=== PATIENT | male | born 1980 | race Caucasian/White ===

== ENCOUNTER 2018-08-10 11:23 | Emergency (ER) | payer OTHER ==
--- NOTE | 2018-08-10 12:11 | EDPHY ---
H & P Time Seen by Provider: 08/10/18 11:50 HPI/ROS: CHIEF COMPLAINT: Fatigue, bruising HISTORY OF PRESENT ILLNESS: 38-year-old male presents to the emergency department with fatigue for several days and then he woke up this morning with some unexplained bruising on his lower extremities. He denies any known trauma or injury. He also states that yesterday morning when he woke up he noted some lesions to the anterior part of his nose. He denies any other headache or any other lesions. No fevers or chills. No reported trauma. No URI symptoms. No chest pain or difficulty breathing. He moved from [place] last summer and does not have a primary care provider. REVIEW OF SYSTEMS: Constitutional: Fatigue. No fever, no chills. Eyes: No double or blurry vision. ENT: No sore throat. Respiratory: No cough, no shortness of breath. Cardiac: No chest pain. Gastrointestinal: No abdominal pain, vomiting or diarrhea. Genitourinary: No dysuria. Musculoskeletal: No neck or back pain. Skin: Lesions to nose as above. Neurological: No headache. Past Medical/Surgical History: Negative Social History: Originally from [place] Smoking Status: Former smoker Physical Exam: General Appearance: Alert, no distress. Vital signs stable. No apparent distress. Eyes: Pupils equal and round. Extraocular motions are all intact. ENT: Mouth: Mucous membranes moist. Respiratory: No wheezing, rhonchi, or rales, lungs are clear to auscultation. Cardiovascular: Regular rate and rhythm. Gastrointestinal: Abdomen is soft and nontender, no masses, no rebound or guarding, bowel sounds normal. Neurological: Alert and oriented x 3, cranial nerves II through XII grossly intact Skin: Superficial excoriated lesions noted to the anterior aspect of his nose. No vesicles. No other rash noted. Warm and dry, no rashes. Musculoskeletal: Nontender to palpate along the cervical, thoracic or lumbar spine. Neck is supple. Extremities: Several small 1-2 cm in diameter areas of ecchymosis noted to the anterior aspect of both lower legs just superior to his patella as. No petechial rash. No redness. Nontender to palpate. Full range of motion of his upper lower extremities. No other lesions or rash noted elsewhere. Psychiatric: Patient is oriented X 3, there is no agitation. Constitutional: Initial Vital Signs Temperature (C) 36.8 C 08/10/18 11:26 Heart Rate 83 08/10/18 11:26 Respiratory Rate 16 08/10/18 11:26 Blood Pressure 138/99 H 08/10/18 11:26 O2 Sat (%) 97 08/10/18 11:26 O2 Delivery Mode Room Air Allergies/Adverse Reactions: No Known Allergies Allergy (Unverified 08/10/18 11:29) Home Medications: Medication Instructions Recorded Valacyclovir HCl [Valtrex] 1,000 mg PO TID #21 tab 08/10/18 Medical Decision Making ED Course/Re-evaluation: 38-year-old male presents emergency department with concerns about ecchymosis noted to bilateral lower legs. He is concerned about bleeding problem. Laboratory studies including CBC and chemistries were within normal limits. The patient also woke up with some lesions noted to the anterior aspect of his nose. These were also evaluated by Dr. Higgins and agrees with these could be related to herpes zoster. No signs of cellulitis or infection. No other vesicular lesions noted. Slit-lamp examination was performed with no evidence of lesions to the cornea or dendritic lesions specifically. Patient was given Valtrex 1000 mg three times daily for 7 days. He was given primary care doctor for referral to follow up with next week to recheck. He was told to return to the emergency department sooner if he had any change in symptoms or felt worse. He is comfortable this plan. Differential Diagnosis: Including but not limited to anemia, electrolyte abnormality, contusion, herpes zoster, cellulitis - Data Points Laboratory Results: Laboratory Results 08/10/18 12:15 08/10/18 12:15 08/10/18 08/10/18 12:15 12:15 WBC 6.39 10^3/uL 10^3/uL (3.80-9.50) RBC 5.36 10^6/uL 10^6/uL (4.40-6.38) Hgb 15.0 g/dL g/dL (13.7-17.5) Hct 44.7 % % (40.0-51.0) MCV 83.4 fL fL (81.5-99.8) MCH 28.0 pg pg (27.9-34.1) MCHC 33.6 g/dL g/dL (32.4-36.7) RDW 15.6 % H % (11.5-15.2) Plt Count 302 10^3/uL 10^3/uL (150-400) MPV 8.7 fL fL (8.7-11.7) Neut % (Auto) 60.8 % % (39.3-74.2) Lymph % (Auto) 27.9 % % (15.0-45.0) [place] % (Auto) 10.0 % % (4.5-13.0) Eos % (Auto) 0.3 % L % (0.6-7.6) Baso % (Auto) 0.8 % % (0.3-1.7) Nucleat RBC Rel Count 0.0 % % (0.0-0.2) Absolute Neuts (auto) 3.89 10^3/uL 10^3/uL (1.70-6.50) Absolute Lymphs (auto) 1.78 10^3/uL 10^3/uL (1.00-3.00) Absolute Monos (auto) 0.64 10^3/uL 10^3/uL (0.30-0.80) Absolute Eos (auto) 0.02 10^3/uL L 10^3/uL (0.03-0.40) Absolute Basos (auto) 0.05 10^3/uL 10^3/uL (0.02-0.10) Absolute Nucleated RBC 0.00 10^3/uL 10^3/uL (0-0.01) Immature Gran % 0.2 % % (0.0-1.1) Immature Gran # 0.01 10^3/uL 10^3/uL (0.00-0.10) Sodium 140 mEq/L mEq/L (135-145) Potassium 3.9 mEq/L mEq/L (3.5-5.2) Chloride 107 mEq/L mEq/L (97-110) Carbon Dioxide 24 mEq/l mEq/l (22-31) Anion Gap 9 mEq/L mEq/L (6-14) BUN 14 mg/dL mg/dL (7-23) Creatinine 1.1 mg/dL mg/dL (0.7-1.3) Estimated GFR > 60 Glucose 104 mg/dL H mg/dL (70-100) Calcium 9.1 mg/dL mg/dL (8.5-10.4) Medications Given: Discontinued Medications Fluorescein Sodium (Bioglo) 1 mg OP EDNOW ONE Stop: 08/10/18 13:51 Last Admin: 08/10/18 13:51 Dose: 1 mg Proparacaine HCl (Alcaine 0.5%) 1 drops EACHEYE ONCE ONE Stop: 08/10/18 13:51 Last Admin: 08/10/18 13:51 Dose: 1 btl Departure - Departure Disposition: Home, Routine, Self-Care Clinical Impression: Zoster Qualifiers: Herpes zoster complications: without complications Qualified Code(s): B02.9 - Zoster without complications Fatigue Qualifiers: Fatigue type: unspecified Qualified Code(s): R53.83 - Other fatigue Condition: Good Instructions: Shingles (ED), Fatigue (ED) Additional Instructions: Valtrex 1000 mg 3 times daily for 7 days. Follow-up with primary care provider that has been provided for you next week to recheck. Return to the emergency department sooner if you notice any pain in your eyes, change in vision, headache, more lesions on her face, fever, or if you feel worse in any way. Follow-up with primary care provider to discuss ongoing issues of fatigue. Referrals: Dorota Melgoza DO [Doctor of Osteopathy] - As per Instructions (Primary care provider loss prevention agent) Prescriptions: Valacyclovir HCl [Valtrex] 1,000 mg PO TID #21 tab
[2018-08-10 12:24] LABS: PLATELET COUNT 302 10^3/uL (150-400)
[2018-08-10] MEDS ORDERED: FLUORESCEIN SODIUM 1 MG STRIP OP ONE ×2 (13:49→13:50)
[2018-08-10] MEDS ORDERED: PROPARACAINE 0.5% 15 ML OPHT DROP ONE (13:49)
[2018-08-10] MEDS ORDERED: PROPARACAINE 0.5% 15 ML OPHT DROP EACHEYE ONE (13:50)
[2018-08-10 14:09] VITALS: BP 128/88
== END 2018-08-10 14:09 | disposition home or self-care (01) ==
DX: B02.9 Zoster without complications (principal); R53.83 Other fatigue; S80.11XA Contusion of right lower leg, initial encounter; S80.12XA Contusion of left lower leg, initial encounter